=== PATIENT | female | born 1980 | race Caucasian/White ===

== ENCOUNTER 2017-04-06 11:32 | Emergency (ER) | payer OTHER ==
[~2017-04-06 11:32] MED LIST: AMBIEN5 MG PO; ATORVASTATIN CA20 MG PO; BUSPIRONE HCL10 MG PO; HYCET1 ML PO; HYDROXYZINE HCL50 MG PO; IRON325 MG PO; METHADONE HCL10 MG PO; OMEPRAZOLE40 MG PO; PROZAC40 MG PO; RISPERDAL2 MG PO; ZOFRAN ODT4 MG PO
--- NOTE | 2017-04-06 12:44 | ED CLINICAL REPORT ---
Clinical Report - Physicians/Mid Levels [facility] [address] [place] [address] 04/06/2017 11:32 Patient: CHRISTOPHER BALLESTEROS Time Seen: 12:38; initial patient contact. HISTORY OF PRESENT ILLNESS Chief Complaint: EYE REDNESS and IRRITATION. This started last night, involves the right eye and is characterized as moderate in severity. The patient did not sustain an injury. This occurred at home. Not injured from contact lenses. No direct trauma to the eyes. No chemical exposure. Eye discomfort, redness, irritation, discharge and itching. No eye matting, photophobia, blurred vision, double vision or decreased vision. No loss of vision. Eyelid swelling. PAST HISTORY Palpitations. Dental Pain. Anxiety Reaction. Depression. Endometritis. ADDITIONAL SURGERIES: Hysterectomy. Medications: Respidal 2 mg daily. Atorvastatin Calcium Oral 20 mg, daily. BusPIRone HCl Oral 7.5 1/2 tab , daily. BusPIRone HCl Oral (Tablet 10 mg), 2x a day. Estrodiol 2mg daily. FLUoxetine HCl Oral 40 mg, daily. Hydroxizine 50 mg bid. Methadone HCl Oral (Solution 10 mg/5mL) 27mg a day , daily. Allergies: PCN.(Anaphylaxis, facial swelling, hives, SOB) Sulfa Antibiotics.(hives, SOB). SOCIAL HISTORY Former smoker. ADDITIONAL NOTES The nursing notes have been reviewed. PHYSICAL EXAM Vital Signs: 04/06/2017 11:38 BP: 128/92. HR: 86. RR: 18. O2 saturation: 100%. Temp: 98 F. Pain level now: 7/10. Have been reviewed. Hypertensive. Heart rate normal. Respiratory rate normal. Temperature normal. Oxygen saturation normal. Appearance: Alert. Oriented X3. No acute distress. Rt Eye: Injected conjunctiva. Exudate present. No conjunctival foreign body. Eyes: Pupils equal, round and reactive to light. EOMs intact. Lt Eye: Left eye exam normal. Neck: No lymphadenopathy. Skin: No rash. Neuro: Oriented X 3. PROGRESS AND PROCEDURES Disposition: Discharged home in good and improved condition. Condition: good. CLINICAL IMPRESSION Acute mucopurulent conjunctivitis of the right eye. INSTRUCTIONS Your Current Medications: CONTINUE TAKING THE FOLLOWING MEDICATIONS: Atorvastatin Calcium Oral : 20 mg daily. BusPIRone HCl Oral : 7.5 1/2 tab daily. BusPIRone HCl Oral : Tablet 10 mg, 2x a day. Estrodiol 2mg daily*. FLUoxetine HCl Oral : 40 mg daily. Hydroxizine 50 mg bid*. Methadone HCl Oral : Solution 10 mg/5mL, 27mg a day daily. Respidal 2 mg daily*. Prescription Medications: Polytrim ophthalmic solution: instill 1 drop into the affected eye every 3 hours until symptoms resolve. Dispense ten (10) mL. No refill. Substitution is permissible. Follow-up: Follow up with your doctor in about four days if not better. Call for an appointment. Screening today revealed the patient's blood pressure to be in the hypertensive range. The patient should follow up with a primary care provider for blood pressure management. (Electronically signed by Frank Hayes Dr. 04/07/2017 23:24)
--- NOTE | 2017-04-06 12:44 | ED NURSING NOTES ---
Clinical Report - Nurses [facility] [address] [place] [address] 04/06/2017 11:32 Patient: CHRISTOPHER BALLESTEROS TRIAGE Triage time 1138. Acuity: LEVEL 4. Chief Complaint: REDNESS, PAIN and VISION PROBLEM TO RIGHT EYE. 11:38. VISUAL ACUITY: Visual acuity performed without corrective lenses: left eye 20/25 minus one letter; right eye 20/30 minus two letters. --11:52 Shari Menendez R.N. 11:38 04/06/17. BP: 128/92. HR: 86. RR: 18. O2 saturation: 100%. Temp: 98 F. Pain level now: 710. Additional comments: "burning" . --11:52 Shari Menendez R.N. Weight: 90.7 kg stated. Height/Length: 68 inches Per Patient. BMI: 30.4. --11:51 Shari Menendez R.N. Medications Atorvastatin Calcium Oral 20 mg, daily. BusPIRone HCl Oral 7.5 1/2 tab , daily. BusPIRone HCl Oral (Tablet 10 mg), 2x a day. Estrodiol 2mg daily. FLUoxetine HCl Oral 40 mg, daily. Hydroxizine 50 mg bid. Methadone HCl Oral (Solution 10 mg/5mL) 27mg a day , daily. --11:49 Shari Menendez R.N. Respidal 2 mg daily. --11:49 Shari Menendez R.N. Allergies PCN.(Anaphylaxis, facial swelling, hives, SOB) Sulfa Antibiotics.(hives, SOB) --11:49 Shari Menendez R.N. History Arrived by private vehicle. Historian: patient. Unaccompanied. Primary physician (jimbo). This started last night. She did not sustain an injury. She has had eye discomfort, eye irritation and eye discharge. PAST MEDICAL HX: The patient has had a hysterectomy. SOCIAL HX: Former smoker (11/2012 1/2 ppd smoker for 15 years). No alcohol use or drug use. --11:52 Shari Menendez R.N. PROBLEMS: Palpitations. Dental Pain. Anxiety Reaction. Depression. Endometritis. --11:47 Shari Menendez R.N. ADDITIONAL SURGERIES: Hysterectomy. --11:47 Shari Menendez R.N. Interventions ID band on patient. To treatment room. --11:52 Shari Menendez R.N. PHYSICAL ASSESSMENT 11:38. Ambulatory to room. GENERAL / NEURO / PSYCH: Alert. Appears in pain. HEENT: ( rt eye redness and tearing, c/o burning pain). RESPIRATORY: Respirations not labored. CVS: Capillary refill less than 2 seconds. SKIN: Skin is warm and dry. --11:53 Shari Menendez R.N. NURSING PROGRESS NOTES 11:38. Head of bed elevated. Reassurance given. Patient identifiers checked. Call light placed in reach. Side rails up. Bed placed in lowest position. Patient ready for evaluation- chart flagged. --11:52 Shari Menendez R.N. 11:38 04/06/2017 Alcaine (Proparacaine HCl) Eye Drops Opthalmic solution 2 drop given. Given in the right eye. --11:54 Shari Menendez R.N. 12:30 04/06/2017 Alcaine (Proparacaine HCl) Eye Drops Opthalmic solution 2 drop given. Given in the right eye. (pt eye red and teary, previous drops had worn off. additional meds given). --12:35 Shari Menendez R.N. 12:30 pt resting quietly, asking for additional eye drops. --13:33 Shari Menendez R.N. 13:05 04/06/2017 Alcaine (Proparacaine HCl) Eye Drops Opthalmic solution 2 drop given. Given in the right eye. --13:34 Shari Menendez R.N. 13:05 pt asking for additional eye drop before dc. given dc instructions ambulated out. --13:35 Shari Menendez R.N. DISPOSITION / DISCHARGE 13:10. Condition at departure: improved and stable. No learning barriers present. Discharge instructions provided and reviewed with the patient. Reviewed medication(s) (polytrim eye drops). Patient verbalized understanding. Written instructions provided in [place]. The patient was discharged home and unaccompanied at time of discharge. She left the Emergency Department ambulatory and via private vehicle. Patient driving. --13:30 Shari Menendez R.N. 13:10 04/06/17. BP: 128/84. HR: 82. RR: 18. O2 saturation: 100%. Temp: deferred. Pain level now: 12/02. --13:30 Shari Menendez R.N. Locked/Released at 04/06/2017 13:35 by Shari Menendez R.N.
--- NOTE | 2017-04-06 12:44 | ED ORDER SUMMARY ---
..... Patient: CHRISTOPHER BALLESTEROS OrderSheet [facility] VisitID: [id number] [address] [place] [address] 36y, F Registration Date/Time: 04/06/2017 ORDER SHEET Weight: 90.7 kg (stated) Allergies: PCN, Sulfa Antibiotics GENERAL ORDERS: MEDICATION ORDERS: Alcaine Eye Drops (Solution 0.5 %) 2 drops (give to ERMD for futher use ) (11:53 04/06/2017 DDean R.N. per protocol) (11:54 DDean R.N.) Fluorescein Eye Strips 1 strips (NOW) (11:54 04/06/2017 DDean R.N. per protocol) (Ack 11:55 DDean R.N.) (Cancelled: Other13:34 DDean R.N.) IV FLUIDS: ORDER SHEET NOTES: [Electronically signed by Shari Menendez R.N. (13:35 04/06/2017)] [Electronically signed by Frank Hayes Dr. (23:24 04/07/2017)] [Electronically locked/signed by Shari Menendez R.N. (13:35 04/06/2017)]
--- NOTE | 2017-04-06 12:44 | ED ORDER SUMMARY ---
..... Patient: CHRISTOPHER BALLESTEROS OrderSheet [facility] VisitID: [id number] [address] [place] [address] 36y, F Registration Date/Time: 04/06/2017 ORDER SHEET Weight: 90.7 kg (stated) Allergies: PCN, Sulfa Antibiotics GENERAL ORDERS: MEDICATION ORDERS: Alcaine Eye Drops (Solution 0.5 %) 2 drops (give to ERMD for futher use ) (11:53 04/06/2017 DDean R.N. per protocol) (11:54 DDean R.N.) Fluorescein Eye Strips 1 strips (NOW) (11:54 04/06/2017 DDean R.N. per protocol) (Ack 11:55 DDean R.N.) (Cancelled: Other13:34 DDean R.N.) IV FLUIDS: ORDER SHEET NOTES: [Electronically signed by Shari Menendez R.N. (13:35 04/06/2017)] [Electronically signed by Frank Hayes Dr. (23:24 04/07/2017)] [Electronically locked/signed by Shari Menendez R.N. (13:35 04/06/2017)]
--- NOTE | 2017-04-07 23:24 | ED MED RECONCILIATION SUMMARY ---
Patient: CHRISTOPHER BALLESTEROS Medication Reconciliation Report [facility] VisitID: [id number] [address] [place] [address] 36y, F Registration Date/Time: 04/06/2017 Weight: 90.7 kg Height/Length: 68 in. BMI: 30.4 ALLERGIES: PCN, Sulfa Antibiotics The patient's Home Medications are listed below: CONTINUE TAKING THE FOLLOWING MEDICATIONS: Atorvastatin Calcium Oral 20 mg, daily BusPIRone HCl Oral 7.5 1/2 tab , daily BusPIRone HCl Oral (10 mg), 2x a day Estrodiol 2mg daily FLUoxetine HCl Oral 40 mg, daily Hydroxizine 50 mg bid Methadone HCl Oral (10 mg/5mL) 27mg a day , daily Respidal 2 mg daily The source(s) of the original Home Medication information: Not obtained. The following Medications were given to the patient in the Emergency Department: Alcaine [Eye Drops] Eye Drops 2 drop, administered: 04/06/2017 11:38:00 AM Alcaine [Eye Drops] Eye Drops 2 drop, administered: 04/06/2017 12:30:00 PM Alcaine [Eye Drops] Eye Drops 2 drop, administered: 04/06/2017 1:05:00 PM The following Medications were prescribed to the patient: Polytrim ophthalmic solution: instill 1 drop into the affected eye every 3 hours until symptoms resolve. Dispense ten (10) mL. No refill. Substitution is permissible. -- Frank Hayes Dr.
--- NOTE | 2017-04-07 23:24 | ED MED RECONCILIATION SUMMARY ---
Patient: CHRISTOPHER BALLESTEROS Medication Reconciliation Report [facility] VisitID: [id number] [address] [place] [address] 36y, F Registration Date/Time: 04/06/2017 Weight: 90.7 kg Height/Length: 68 in. BMI: 30.4 ALLERGIES: PCN, Sulfa Antibiotics The patient's Home Medications are listed below: CONTINUE TAKING THE FOLLOWING MEDICATIONS: Atorvastatin Calcium Oral 20 mg, daily BusPIRone HCl Oral 7.5 1/2 tab , daily BusPIRone HCl Oral (10 mg), 2x a day Estrodiol 2mg daily FLUoxetine HCl Oral 40 mg, daily Hydroxizine 50 mg bid Methadone HCl Oral (10 mg/5mL) 27mg a day , daily Respidal 2 mg daily The source(s) of the original Home Medication information: Not obtained. The following Medications were given to the patient in the Emergency Department: Alcaine [Eye Drops] Eye Drops 2 drop, administered: 04/06/2017 11:38:00 AM Alcaine [Eye Drops] Eye Drops 2 drop, administered: 04/06/2017 12:30:00 PM Alcaine [Eye Drops] Eye Drops 2 drop, administered: 04/06/2017 1:05:00 PM The following Medications were prescribed to the patient: Polytrim ophthalmic solution: instill 1 drop into the affected eye every 3 hours until symptoms resolve. Dispense ten (10) mL. No refill. Substitution is permissible. -- Frank Hayes Dr.
--- NOTE | 2017-04-07 23:24 | ED DISCHARGE INSTRUCTIONS ---
Patient: CHRISTOPHER BALLESTEROS General Instructions [facility] VisitID: [id number] [place] [address] 36y, F Registration Date/Time: 04/06/2017 INSTRUCTIONS Your Current Medications: CONTINUE TAKING THE FOLLOWING MEDICATIONS: Atorvastatin Calcium Oral : 20 mg daily. BusPIRone HCl Oral : 7.5 1/2 tab daily. BusPIRone HCl Oral : Tablet 10 mg, 2x a day. Estrodiol 2mg daily*. FLUoxetine HCl Oral : 40 mg daily. Hydroxizine 50 mg bid*. Methadone HCl Oral : Solution 10 mg/5mL, 27mg a day daily. Respidal 2 mg daily*. Prescription Medications: Polytrim ophthalmic solution: instill 1 drop into the affected eye every 3 hours until symptoms resolve. Dispense ten (10) mL. No refill. Substitution is permissible. Follow-up: Follow up with your doctor in about four days if not better. Call for an appointment. Screening today revealed the patient's blood pressure to be in the hypertensive range. The patient should follow up with a primary care provider for blood pressure management. ADDITIONAL INFORMATION Conjunctivitis, Bacterial You have a bacterial infection in the membranes covering the eye. The most common symptoms include a thick discharge from the eye, swollen eyelids, redness, eyelids sticking together upon awakening, and a gritty or scratchy feeling in the eye. The infection takes about 7-10 days to resolve with treatment. Home Care: Use prescribed eyedrops or ointment as directed to treat the infection. Apply a warm pack (towel soaked in warm water) to the affected eye 3-4 times a day. Do this just before applying medicine to the eye. Use a warm, wet cloth to wipe away crusting of the eyelids in the morning. This is caused by mucus drainage during the night. You may also use saline irrigating solution or artificial tears to rinse away mucus inside the eye. Do not put a patch over the eye. Wash your hands before and after touching the infected eye. This is to prevent spreading the infection to the other eye, and to other people. Do not share your towels or washcloths with others. You may use acetaminophen (Tylenol) or ibuprofen (Motrin, Advil) to control pain, unless another medicine was prescribed. [NOTE: If you have chronic liver or kidney disease or ever had a stomach ulcer or GI bleeding, talk with your doctor before using these medicines.] Do not wear contact lenses until your eyes have healed and all symptoms are gone. Follow Up with your doctor or this facility as directed, or if there has not been improvement within 5 days. Get Prompt Medical Attention if any of the following occur: Worsening vision Increasing pain in the eye Increasing swelling or redness of the eyelid Redness spreading around the eye Trimethoprim Sulfate, Polymyxin B Sulfate Eye drops, solution What is this medicine? POLYMYXIN B and TRIMETHOPRIM (edgar i MIX in B and trye METH oh prim) eye drops treat certain eye infections caused by bacteria. How should I use this medicine? This medicine is used in the eye. Follow the directions on the prescription label. Wash your hands before and after use. Tilt your head back slightly. Pull your lower eyelid down gently to form a pouch. Do not touch the tip of the dropper to your eye, fingertips, or other surface. Squeeze the prescribed number of drops into the pouch. Close the eye gently to spread the drops. Use your medicine at regular intervals. Do not take your medicine more often than directed. Use all of your medicine as directed even if you think your are better. Do not skip doses or stop your medicine early. Talk to your business objects report developer regarding the use of this medicine in children. While this drug may be prescribed for children and infants for selected conditions, precautions do apply. What side effects may I notice from receiving this medicine? Side effects that you should report to your doctor or health restorative care technician as soon as possible: burning, stinging, or swelling change in vision or blurred vision that will not go away eye pain itching and redness rash Side effects that usually do not require medical attention (report to your doctor or health restorative care technician if they continue or are bothersome): temporary blurred vision after applying temporary watering or stinging What may interact with this medicine? Interactions are not expected. Do not use any other eye products without advice of your doctor or health restorative care technician. What if I miss a dose? If you miss a dose, use it as soon as you can. If it is almost time for your next dose, use only that dose. Do not use double or extra doses. Where should I keep my medicine? Keep out of the reach of children. Store at room temperature 15 to 25 degrees C (59 to 77 degrees F). Protect from light. To prevent the spread of infection, it is best to throw away any unused eye drops after you finish the course of treatment. Throw away any unused medicine after the expiration date. What should I tell my health care provider before I take this medicine? They need to know if you have any of these conditions: wear contact lenses an unusual or allergic reaction to polymyxin B, trimethoprim, other medicines, foods, dyes, or preservatives or trying to get breast-feeding What should I watch for while using this medicine? Check with your doctor or health restorative care technician if your condition does not get better after 5 days, or if it gets worse. If you wear contact lenses, ask when you can use your lenses again. A burning or stinging reaction that does not go away may mean you are allergic to this product. Stop use and call your doctor or health restorative care technician. To prevent the spread of infection, do not share eye products or other personal items with anyone else. You have been given the following additional information: Conjunctivitis, Bacterial Trimethoprim Sulfate, Polymyxin B Sulfate Eye drops, solution (Electronically signed by Frank Hayes Dr. 04/07/2017 23:24)
--- NOTE | 2017-04-07 23:24 | ED DISCHARGE INSTRUCTIONS ---
Patient: CHRISTOPHER BALLESTEROS General Instructions [facility] VisitID: [id number] [place] [address] 36y, F Registration Date/Time: 04/06/2017 INSTRUCTIONS Your Current Medications: CONTINUE TAKING THE FOLLOWING MEDICATIONS: Atorvastatin Calcium Oral : 20 mg daily. BusPIRone HCl Oral : 7.5 1/2 tab daily. BusPIRone HCl Oral : Tablet 10 mg, 2x a day. Estrodiol 2mg daily*. FLUoxetine HCl Oral : 40 mg daily. Hydroxizine 50 mg bid*. Methadone HCl Oral : Solution 10 mg/5mL, 27mg a day daily. Respidal 2 mg daily*. Prescription Medications: Polytrim ophthalmic solution: instill 1 drop into the affected eye every 3 hours until symptoms resolve. Dispense ten (10) mL. No refill. Substitution is permissible. Follow-up: Follow up with your doctor in about four days if not better. Call for an appointment. Screening today revealed the patient's blood pressure to be in the hypertensive range. The patient should follow up with a primary care provider for blood pressure management. ADDITIONAL INFORMATION Conjunctivitis, Bacterial You have a bacterial infection in the membranes covering the eye. The most common symptoms include a thick discharge from the eye, swollen eyelids, redness, eyelids sticking together upon awakening, and a gritty or scratchy feeling in the eye. The infection takes about 7-10 days to resolve with treatment. Home Care: Use prescribed eyedrops or ointment as directed to treat the infection. Apply a warm pack (towel soaked in warm water) to the affected eye 3-4 times a day. Do this just before applying medicine to the eye. Use a warm, wet cloth to wipe away crusting of the eyelids in the morning. This is caused by mucus drainage during the night. You may also use saline irrigating solution or artificial tears to rinse away mucus inside the eye. Do not put a patch over the eye. Wash your hands before and after touching the infected eye. This is to prevent spreading the infection to the other eye, and to other people. Do not share your towels or washcloths with others. You may use acetaminophen (Tylenol) or ibuprofen (Motrin, Advil) to control pain, unless another medicine was prescribed. [NOTE: If you have chronic liver or kidney disease or ever had a stomach ulcer or GI bleeding, talk with your doctor before using these medicines.] Do not wear contact lenses until your eyes have healed and all symptoms are gone. Follow Up with your doctor or this facility as directed, or if there has not been improvement within 5 days. Get Prompt Medical Attention if any of the following occur: Worsening vision Increasing pain in the eye Increasing swelling or redness of the eyelid Redness spreading around the eye Trimethoprim Sulfate, Polymyxin B Sulfate Eye drops, solution What is this medicine? POLYMYXIN B and TRIMETHOPRIM (edgar i MIX in B and trye METH oh prim) eye drops treat certain eye infections caused by bacteria. How should I use this medicine? This medicine is used in the eye. Follow the directions on the prescription label. Wash your hands before and after use. Tilt your head back slightly. Pull your lower eyelid down gently to form a pouch. Do not touch the tip of the dropper to your eye, fingertips, or other surface. Squeeze the prescribed number of drops into the pouch. Close the eye gently to spread the drops. Use your medicine at regular intervals. Do not take your medicine more often than directed. Use all of your medicine as directed even if you think your are better. Do not skip doses or stop your medicine early. Talk to your replanting machine crewman regarding the use of this medicine in children. While this drug may be prescribed for children and infants for selected conditions, precautions do apply. What side effects may I notice from receiving this medicine? Side effects that you should report to your doctor or health medicare compliance auditor as soon as possible: burning, stinging, or swelling change in vision or blurred vision that will not go away eye pain itching and redness rash Side effects that usually do not require medical attention (report to your doctor or health medicare compliance auditor if they continue or are bothersome): temporary blurred vision after applying temporary watering or stinging What may interact with this medicine? Interactions are not expected. Do not use any other eye products without advice of your doctor or health medicare compliance auditor. What if I miss a dose? If you miss a dose, use it as soon as you can. If it is almost time for your next dose, use only that dose. Do not use double or extra doses. Where should I keep my medicine? Keep out of the reach of children. Store at room temperature 15 to 25 degrees C (59 to 77 degrees F). Protect from light. To prevent the spread of infection, it is best to throw away any unused eye drops after you finish the course of treatment. Throw away any unused medicine after the expiration date. What should I tell my health care provider before I take this medicine? They need to know if you have any of these conditions: wear contact lenses an unusual or allergic reaction to polymyxin B, trimethoprim, other medicines, foods, dyes, or preservatives or trying to get breast-feeding What should I watch for while using this medicine? Check with your doctor or health medicare compliance auditor if your condition does not get better after 5 days, or if it gets worse. If you wear contact lenses, ask when you can use your lenses again. A burning or stinging reaction that does not go away may mean you are allergic to this product. Stop use and call your doctor or health medicare compliance auditor. To prevent the spread of infection, do not share eye products or other personal items with anyone else. You have been given the following additional information: Conjunctivitis, Bacterial Trimethoprim Sulfate, Polymyxin B Sulfate Eye drops, solution (Electronically signed by Frank Hayes Dr. 04/07/2017 23:24)
--- NOTE | 2017-04-07 23:24 | ED MAR SUMMARY ---
..... Medication Administration Record [facility] [address] [place] [address] Patient: CHRISTOPHER BALLESTEROS Visit ID: [id number] 36y, F Weight: 90.7 kg Height/Length: 68 in BMI: 30.4 ALLERGIES: PCN, Sulfa Antibiotics Given 11:38 04/06/2017 Shari Menendez R.N. Medication Administered: ALCAINE [EYE DROPS] (PROPARACAINE HCL), Dose: 2 drop Opthalmic solution Eye Drops. Medication Ordered: Alcaine Eye Drops (Solution 0.5 %) 2 drops (give to ERMD for futher use ). Given 12:30 04/06/2017 Shari Menendez R.N. Medication Administered: ALCAINE [EYE DROPS] (PROPARACAINE HCL), Dose: 2 drop Opthalmic solution Eye Drops. Medication Ordered: Alcaine Eye Drops (Solution 0.5 %) 2 drops (give to ERMD for futher use ). Given 13:05 04/06/2017 Shari Menendez R.N. Medication Administered: ALCAINE [EYE DROPS] (PROPARACAINE HCL), Dose: 2 drop Opthalmic solution Eye Drops. Medication Ordered: Alcaine Eye Drops (Solution 0.5 %) 2 drops (give to ERMD for futher use ).
--- NOTE | 2017-04-07 23:24 | ED MAR SUMMARY ---
..... Medication Administration Record [facility] [address] [place] [address] Patient: CHRISTOPHER BALLESTEROS Visit ID: [id number] 36y, F Weight: 90.7 kg Height/Length: 68 in BMI: 30.4 ALLERGIES: PCN, Sulfa Antibiotics Given 11:38 04/06/2017 Shari Menendez R.N. Medication Administered: ALCAINE [EYE DROPS] (PROPARACAINE HCL), Dose: 2 drop Opthalmic solution Eye Drops. Medication Ordered: Alcaine Eye Drops (Solution 0.5 %) 2 drops (give to ERMD for futher use ). Given 12:30 04/06/2017 hSari Menendez R.N. Medication Administered: ALCAINE [EYE DROPS] (PROPARACAINE HCL), Dose: 2 drop Opthalmic solution Eye Drops. Medication Ordered: Alcaine Eye Drops (Solution 0.5 %) 2 drops (give to ERMD for futher use ). Given 13:05 04/06/2017 Shari Menendez R.N. Medication Administered: ALCAINE [EYE DROPS] (PROPARACAINE HCL), Dose: 2 drop Opthalmic solution Eye Drops. Medication Ordered: Alcaine Eye Drops (Solution 0.5 %) 2 drops (give to ERMD for futher use ).
== END 2017-04-06 13:10 | disposition home or self-care (01) ==
LOC: ED SRH 11:32
DX: H10.021 Other mucopurulent conjunctivitis, right eye (principal); Z79.899 Other long term (current) drug therapy; Z79.891 Long term (current) use of opiate analgesic; Z88.0 Allergy status to penicillin; Z88.2 Allergy status to sulfonamides; Z87.891 Personal history of nicotine dependence